=== PATIENT | female | born 1965 | race Caucasian/White ===

== ENCOUNTER 2019-07-27 12:52 | Outpatient (RCR) | payer OTHER, SELFPAY ==
[2019-07-27 12:58] VITALS: BMI 32.3
[2019-07-27 12:59] VITALS: BMI 32.3
== END 2019-10-25 23:59 | disposition home or self-care (01) ==
LOC: ANHDMC 12:52
PROVIDERS: PCP Internal Medicine; Visit Provider Internal Medicine
DX: E11.9 Type 2 diabetes mellitus without complications (principal); Z71.89 Other specified counseling; Z71.3 Dietary counseling and surveillance
CPT/HCPCS: 97802; G0108

== ENCOUNTER 2020-06-12 07:27 | Outpatient (CLI) | payer OTHER, SELFPAY ==
--- NOTE | ~2020-06-12 | MM_ITS ---
EXAMINATION: MM screening [facility] BI w tanner HISTORY: Screening TECHNIQUE: Craniocaudal and mediolateral oblique 3-D tomosynthesis images were obtained and synthetic 2-D images were generated. CAD analysis was submitted and interpreted. COMPARISON: Comparison to multiple prior studies sequentially, with oldest reviewed study dated 02/01. BREAST PARENCHYMAL COMPOSITION: The breasts are heterogeneously dense, which may obscure small masses . FINDINGS: There is no evidence of suspicious mass, calcification, or architectural distortion to sugg est malignancy in either breast. There has been no suspicious interval change. IMPRESSION: 1. No mammographic evidence of malignancy. 2. Recommend routine screening mammography in one year. BI-RADS Category 1: Negative Reviewed, dictated and finalized at location A.
== END 2020-06-12 07:28 | disposition home or self-care (01) ==
LOC: ANHIMG 07:30
PROVIDERS: PCP Internal Medicine; Visit Provider Obstetrics & Gynecology
DX: Z12.31 Encounter for screening mammogram for malignant neoplasm of breast (principal)
CPT/HCPCS: 77063; 77067

== ENCOUNTER 2021-04-16 09:01 | Outpatient (RCR) | payer OTHER, SELFPAY | END 2021-07-04 11:53 | disposition home or self-care (01) | LOC: ANHDMC 09:01 | PROVIDERS: PCP Internal Medicine; Visit Provider Internal Medicine Endocrinology, Diabetes & Metabolism | DX: E11.9 Type 2 diabetes mellitus without complications (principal); Z71.89 Other specified counseling | CPT/HCPCS: G0108 ==

== ENCOUNTER 2021-08-29 12:54 | Outpatient (CLI) | payer OTHER, SELFPAY ==
--- NOTE | ~2021-08-29 | MR_ITS ---
EXAMINATION: MR shoulder LT wo con DATE: 08/29/2021 15:59 INDICATION: Left shoulder pain TECHNIQUE: Magnetic resonance imaging (MRI) of the left shoulder was performed without intravenous co ntrast. Sequences included axial PD-weighted FS FSE, coronal oblique PD-weighted FS FSE, coronal obli que T2-weighted FS FSE, sagittal PD-weighted FS FSE, and sagittal T1-weighted SE. COMPARISON: Left shoulder radiographs dated 02/19/2021 FINDINGS: Coracoacromial arch: The acromion undersurface is curved in morphology (type II) with prominent anterior subacromial spur. The coracoacromial ligament is normal. Moderate acromioclavicular osteoarthritis with moderate-sized inferiorly directed osteophytes at the lateral head of the clavicle. Rotator cuff: Moderate supraspinatus and mild infraspinatus tendinopathy. Partial tear extending for approximately 1 cm AP along the superior facet footplate of the supraspinatus tendon. There is some involvement of the bursal surface as well as portions of the central third of the tendon but without a single well-d efined fluid signal intensity tear defect. The teres minor and subscapularis tendons are normal. No a symmetric rotator cuff muscle atrophy. Biceps tendon, glenoid labrum and glenohumeral cartilage: Long head of the biceps tendon is normal. Focal mild degenerative tearing at the 11:00 position of th e posterior superior glenoid labrum. Glenohumeral cartilage is normal. Fluid: Physiologic amount of fluid in the glenohumeral joint and biceps tendon sheath. No loose osteochondra l bodies. Moderate of fluid in the subacromial/subdeltoid bursa consistent with bursitis. Bones: Normal marrow signal with no edema, fracture or abnormal marrow replacing process. IMPRESSION: 1. Moderate supraspinatus and mild infraspinatus tendinopathy with poorly defined small partial-thick ness tear at the insertion of the distal supraspinatus tendon with some involvement of the bursal cuate face but without a well-defined fluid signal intensity tear defect. 2. Focal mild degenerative tearing at the posterior superior glenoid labrum. 3. Moderate-sized anterior subacromial spur as well as moderate acromial clavicular osteoarthritis wi th moderate-sized inferiorly directed clavicular osteophyte. 4. Subacromial/subdeltoid bursitis. Reviewed, dictated and finalized at location H. E MAKER IMPRESSION: 1. Moderate supraspinatus and mild infraspinatus tendinopathy with poorly defin ed small partial-thickness tear at the insertion of the distal supraspinatus te ndon with some involvement of the bursal surface but without a well-defined flu id signal intensity tear defect. 2. Focal mild degenerative tearing at the posterior superior glenoid labrum. 3. Moderate-sized anterior subacromial spur as well as moderate acromial clavic ular osteoarthritis with moderate-sized inferiorly directed clavicular osteophy te. 4. Subacromial/subdeltoid bursitis.
== END 2021-08-29 15:07 ==
PROVIDERS: PCP Internal Medicine; Visit Provider Orthopaedic Surgery
DX: M75.102 Unspecified rotator cuff tear or rupture of left shoulder, not specified as traumatic (principal); S43.432A Superior glenoid labrum lesion of left shoulder, initial encounter; M75.52 Bursitis of left shoulder; M19.012 Primary osteoarthritis, left shoulder
CPT/HCPCS: 73221

== ENCOUNTER 2021-08-30 07:24 | Outpatient (CLI) | payer OTHER, SELFPAY ==
--- NOTE | ~2021-08-30 | MM_ITS ---
EXAMINATION: MM screening [facility] BI w tanner HISTORY: Screening mammogram TECHNIQUE: Craniocaudal and mediolateral oblique 3-D tomosynthesis images were obtained and synthetic 2-D images were generated. CAD analysis was submitted and interpreted. COMPARISON: 06/12/2020 05/04/2019, 04/16/2018 BREAST PARENCHYMAL COMPOSITION: The breasts are heterogeneously dense, which may obscure small masses . FINDINGS: There is no evidence of suspicious mass, calcification, or architectural distortion to sugg est malignancy in either breast. There has been no suspicious interval change. IMPRESSION: 1. No mammographic evidence of malignancy. 2. Recommend routine screening mammography in one year. BI-RADS Category 1: Negative Reviewed, dictated and finalized at location A. CE MOVER
== END 2021-08-30 07:25 | disposition home or self-care (01) ==
LOC: ANHIMG 07:26
PROVIDERS: PCP Internal Medicine; Visit Provider Obstetrics & Gynecology
DX: Z12.31 Encounter for screening mammogram for malignant neoplasm of breast (principal)
CPT/HCPCS: 77063; 77067

== ENCOUNTER 2021-12-04 12:49 | Outpatient (CLI) | payer OTHER, SELFPAY ==
--- NOTE | 2021-12-04 13:00 | ECG_ITS ---
Measurements Intervals [place] Rate: 82 P: 33 NH: 175 QRS: 22 QRSD: 85 T: 20 QT: 364 QTc: 426 Interpretive Statements SINUS RHYTHM POSSIBLE LEFT ATRIAL ENLARGEMENT [-0.1mV P WAVE IN V1/V2] POOR R-WAVE PROGRESSION ABNORMAL ECG NO PREVIOUS ECG AVAILABLE FOR COMPARISON Electronically Signed On 12-04-2021 17:36:41 CDT by Osvaldo Beard M.D.
[2021-12-04 14:19] LABS: Anion Gap 9 mmol/L (8-16); Blood Urea Nitrogen 17 mg/dL (7-17); Calcium 9.4 mg/dL (8.4-10.2); Carbon Dioxide 27 mmol/L (22-30); Chloride 102 mmol/L (98-107); Estimated Glomerular Filt Rate > 60; Glucose 129 mg/dL (65-110); Potassium 3.9 mmol/L (3.4-5.0); Sodium 138 mmol/L (137-145)
== END 2021-12-04 12:50 | disposition home or self-care (01) ==
LOC: ANHSURGERY 12:52
PROVIDERS: Anesthesiology; PCP Internal Medicine; Visit Provider Orthopaedic Surgery
DX: E11.9 Type 2 diabetes mellitus without complications (principal); I10 Essential (primary) hypertension; Z01.818 Encounter for other preprocedural examination
CPT/HCPCS: 36415; 80048; 93005

== ENCOUNTER 2021-12-07 00:32 | Day surgery (SDC) | payer OTHER, SELFPAY ==
[2021-11-28 14:59] VITALS: BMI 32.1
--- NOTE | 2021-11-28 15:05 | PC.NURSE ---
Report to the Outpatient Waiting Room, entrance under the green pavilion located off [facility], at time _1000_ on date _12-07-2021_. OR Time: _1200_. - You and your visitor will be asked a series of questions to screen for COVID 19 for your protection. - A mask is required within the hospital. Preoperative COVID Testing Requirements: No COVID Test needed if: (proof is required; if not received patient will have Rapid Test prior to entry) - Patient has received COVID Vaccine at least 14 days prior to procedure date or - Patient has positive COVID test result within last 90 days of surgery date. COVID Test needed if above criteria is not met If not COVID vaccinated a COVID test must be conducted within 72 hours of surgery and patient is asked to isolate self from time of testing until procedure. You will go to the [facility] for your COVID testing. The [facility] Testing site is located at the corner of [address] from [facility]. You will only be called if COVID results are positive and your surgeon may reschedule your elective surgery date. Patients may have clear liquids (water, carbonated beverages, clear teas, apple juice) until 3 hours prior to surgery with a maximum of 20 ounces. - No food from midnight until time of surgery - Infants may have breast milk until 4 hours before surgery, infant formula 6 hours prior to surgery. - Children will be allowed to drink immediately following surgery. If applicable, please bring a bottle or sippy cup to assist with drinking. Juice, water, soda, and popsicles are readily available. For infants on formula, please bring formula the day of surgery. Pacifiers are allowed. Take the following medications with a SIP of water the morning of surgery: ____Escitalopram Medications to discontinue per physician Multivitamin Date to take last pqtp [id number] Please no make-up, nail equatorial guinean, hairspray, perfume, deodorant, or body powder the day of surgery. No jewelry (including any body piercings) or valuables the day of surgery, leave them at home. Please take a shower or bath the night before, or the morning of, surgery with an antibacterial soap. Wear comfortable, loose fitting clothing. Children are encouraged to wear pajamas. - Jewelry must be removed prior to entering the operating room. Rings and piercings that are not removed may be cut off. - The hospital will not accept responsibility for valuables. - Please leave all valuables, including medications, at home the day of surgery. If you are going home after surgery, a licensed caterpillar driver must drive you home. - NO public transportation without another adult. - We recommend that an adult stay with you for 24 hours following discharge. - We also recommend that you do not drive, make important decision, drink alcoholic beverages, or take any drugs that were not prescribed by your health care provider for at least 24 hours after your discharge time. For Pediatric surgeries, we recommend two adults accompany the child home (only one inside the building at this time). One visitor will be allowed to accompany the patient into the hospital. Patients visitor will be instructed to remain with patient at all times or leave the building. We will allow the visitor to come back to the postoperative area when patient is ready. Follow any additional instructions given to you from your surgeon. Telephone instructions given to Patient____and asked if any additional questions and then verbalized understanding. Patient advised to call surgeon office or pre surgery nurse liaison [phone] if any additional questions.
[2021-12-07] VITALS (9 sets, daily range): BP systolic 112–129; BP diastolic 71–84; PULSE 77–97; RESP 10–18; TEMP 36.5–36.7; O2SAT 92–100
--- NOTE | 2021-12-07 07:18 | WPDHPUPDATE1 ---
History and Physical Update Update Date/Time: 12/07/21 07:18 History and Physical has been reviewed, including an updated exam of the patient. There are NO changes in the patient's condition. Risks, benefits, and alternatives have been discussed and questions answered. Patient agrees to proceed with procedure.
[2021-12-07] MEDS: LACTATED RINGERS 1,000 ML 30 ML IV CONT ×2 (09:15→13:06)
[2021-12-07] MEDS: ACETAMINOPHEN 500 MG TABLET 1000 MG PO (09:17)
[2021-12-07] MEDS: KETOROLAC 15 MG/ML VIAL (*BKC) IV PUSH (09:17)
[2021-12-07 09:21] LABS: Glucose Point of Care 122 mg/dl (65-105)
--- NOTE | 2021-12-07 10:17 | WPDANESEPPF ---
Anes - Initial Pre Proc Eval Procedure: Operation Date: 12/07/21 10:30 Proposed Procedures p Left Shoulder Arthroscopic Subacromial Decompression, Possible Rotator Cuff Repair - Trell Bedoya MD Date/Time: 12/07/21 10:17 Surgeon: Trell Bedoya MD Pre Op Diagnosis: high grade partial rotator cuff tear left shoulder Patient Data Age: 56 Gender: F Height: 1.63 m Weight: 84.8 kg Last Vital Signs Temp 36.7 C 12/07/21 08:49 Pulse 97 12/07/21 08:49 Resp 16 12/07/21 08:49 BP 121/84 12/07/21 08:49 Pulse Ox 97 12/07/21 08:49 Allergies Allergy/AdvReac Type Severity Reaction Status Date / Time Sulfa (Sulfonamide Allergy Intermediate sulfa eye Verified 12/07/21 08:56 Antibiotics) gtts Home Medications Medication Instructions Recorded Confirmed Type Accu-Chek Softclix Lancets #200 ea NS 08/23/20 12/07/21 Rx escitalopram oxalate 10 mg tablet 10 mg PO DAILY 08/23/20 12/07/21 History multivitamin 1 tablet PO DAILY 08/23/20 12/07/21 History flash glucose sensor #2 ea 01/31/21 12/07/21 Rx flash glucose scanning reader #1 ea 02/26/21 12/07/21 Rx metformin 500 mg tablet,extended 500 mg PO BID 30 Days #60 tablet 06/04/21 12/07/21 Rx release 24 hr atorvastatin 20 mg tablet 20 mg PO DAILY #90 tablet 06/17/21 12/07/21 Rx losartan 50 mg tablet 50 mg PO DAILY #90 tablet 08/23/21 12/07/21 Rx pantoprazole 40 mg tablet,delayed See Rx Instructions .ROUTE 08/23/21 12/07/21 Rx release .COMPLEX #90 tablet Jardiance 25 mg tablet 25 mg PO QAM 90 Days #90 tablet NS 10/04/21 12/07/21 Rx ondansetron 4 mg disintegrating 4 mg PO Q8H PRN #14 tablet 10/15/21 12/07/21 Rx tablet semaglutide 1 mg/dose (4 mg/3 mL) 1 mg SUBCUT WEEKLY 90 Days #9.75 ml 11/12/21 12/07/21 Rx subcutaneous pen injector Laboratory Tests 12/07/21 09:13 POC Capillary Glucose 122 mg/dl H mg/dl (65-105) Patient hx anesthesia problems: none Family hx anesthesia problems: none Results Review: All pre-operative results and documents have been reviewed as part of the pre-operative evaluation. [facility]LY [facility] Past Medical History Medical History Anxiety delivery delivered H/O: HTN (hypertension) History of DVT in adulthood Obesity (BMI 30-39.9) Pure hypercholesterolemia Type 2 diabetes mellitus without complication Surgical History Surgical History H/O right breast biopsy History of cholecystectomy History of endometrial ablation History of repair of rotator cuff History of total right knee replacement (TKR) Family History Family History Father Hypertension Mother Patient's mother is in good health Sibling Patient's sister is in good health Other Afib Breast cancer Cataract and glaucoma syndrome Cerebrovascular accident Colon cancer Diabetes mellitus Family history of alcoholism Family history of mental disorder Hearing loss Heart failure Ovarian ca Social History Social History Smoking status: Never smoker Second hand tobacco smoke exposure: No Alcohol intake: current Drinks per week: 5 Living arrangements: with family Spiritual care concerns: No Anes - Eval Final PreProcedure Day of Procedure 12/07/21 10:17 Patient weight: obese Heart: regular rate and rhythm Lungs: clear to auscultation Airway: Mallampati scale class II Neurological: alert and oriented Last oral intake: >/= 8 hours ASA classification: III Emergent: no Anesthetic plan: proceed Anesthesia type and monitoring: general and standard monitoring Results Review: All pre-operative results and documents have been reviewed as part of the pre-operative evaluation. Informed Consent: The patient's anesthetic plan and its attendant risks and benefits were discussed with the patient/family/PO
--- NOTE | 2021-12-07 10:28 | WPDANESPNB ---
Anes - Peripheral Nerve Block Date/Time: 12/07/21 10:28 I have discussed with the patient/family/POA the placement of a peripheral nerve block for post-operative pain management, including associated risks, benefits, complications, and side effects. Alternative methods of post-operative analgesia were detailed. Questions were solicited and answers provided to the satisfaction of the patient/family/POA. Time-Out: A pre-procedural Time-Out was completed immediately before starting the procedure and confirmed: Patient Identification, Site, Procedure, Patient Position and the Availability of Requisite Equipment. Clinical Indications: Acute post-operative pain management requested by the operative surgeon. Nerve Block Insertion Note Anes-nerve block: interscalene left Patient position: supine Needle: 22 gauge, stimulating, insulated echogenic needle. Needle length: 50 mm Technique: ultrasound Injectate: bupivacaine 0.5% with epi 5 mcg/ml (30 cc no epi) and dexamethasone (mg) (8) Observations: tolerated well Complications: none Procedure start time:: 1021 Procedure end time:: 1026
[2021-12-07] MEDS: ceFAZolin 2 GM/D5W 50 ML 2 GM/50 ML BAG IVPB (10:32)
[2021-12-07 12:58] LABS: Glucose Point of Care 151 mg/dl (65-105)
--- NOTE | 2021-12-07 15:37 | P.OP_ITS ---
Procedure Note - Detailed Date of Procedure 12/07/21 Pre-op Diagnosis high grade partial rotator cuff tear left shoulder Post-op Diagnosis Other (1. Rotator cuff tear, complete 2. Subacromial impingement) Procedure Performed Left shoulder 1. Arthroscopic rotator cuff repair 2. Arthroscopic subacromial decompression Surgeon Trell Bedoya MD Hardware Developer Tana Sharma PA-C Anesthesia General and Regional ( interscalene block) Indications Severe persistent pain despite ongoing conservative treatment. Findings Small full-thickness tear. No retraction. Partial articular component more anteriorly. Significant proliferative bursitis and impingement. No intra- articular pathology. Description of Procedure Preoperative antibiotics were given. An interscalene block was administered in the preoperative area. The patient was bought brought to the operating room. A general anesthetic was administered. The patient was carefully positioned in the beach chair position. The head and neck were carefully positioned. The non operative extremity was also carefully positioned. The shoulder was prepped and draped in the usual sterile fashion. Examination was performed. Standard posterior and anterior arthroscopic portals were established. Inflow achieved with the arthroscopic pump using saline and epinephrine. The glenohumeral joint was carefully inspected. The rotator calf tear was identified and gently debrided. Attention was turned to the subacromial space. A complete bursectomy was performed. The rotator cuff and footprint were lightly debrided. A modest acromioplasty was performed. The tear configuration was carefully assessed. At this point, 2 tunnels were created at the rotator cuff. The ArthroTunneler technique was utilized. Three sutures were passed through each tunnel. All sutures were then passed through the cuff tissue. The sutures were tied arthroscopically. The arthroscopic instruments were removed. The wounds were closed with 3-0 Monocryl subcuticular suture and steri strips. There were no complications. A sling was applied and the patient brought to the recovery room. Physician information services assistant, Tana Sharma PA-C, required for surgery; including patient positioning, draping, arthroscopic camera operation, maintaining instrument position, suture retrieval, wound closure, and dressing and sling pl acement. Estimated Blood Loss -10.0 Pathology None sent Complications No immediate complications Condition Stable Disposition PACU
== END 2021-12-07 15:11 | disposition home or self-care (01) ==
PROVIDERS: PCP Internal Medicine; Visit Provider Orthopaedic Surgery
PROC: (CPT 29805; principal; 2021-12-07 10:30)
DX: M75.112 Incomplete rotator cuff tear or rupture of left shoulder, not specified as traumatic (principal); M75.42 Impingement syndrome of left shoulder; G89.18 Other acute postprocedural pain; F41.9 Anxiety disorder, unspecified; I10 Essential (primary) hypertension; Z86.718 Personal history of other venous thrombosis and embolism; E78.00 Pure hypercholesterolemia, unspecified; E11.9 Type 2 diabetes mellitus without complications; Z79.84 Long term (current) use of oral hypoglycemic drugs; Z90.49 Acquired absence of other specified parts of digestive tract; E66.9 Obesity, unspecified; Z68.32 Body mass index [BMI] 32.0-32.9, adult; M25.512 Pain in left shoulder; M75.52 Bursitis of left shoulder
CPT/HCPCS: 29827; 29826; 64415; 82948; A4565; A9270; J0330; J0690; J1100; J1885; J2250; J2405; J2704; J3010; J7120

== ENCOUNTER 2022-02-13 15:30 | Outpatient (RCR) | payer OTHER, SELFPAY ==
[2022-01-07 13:35] VITALS: BP_SYST 145
--- NOTE | 2022-01-07 14:29 | PTOPEVAL ---
PHYSICAL THERAPY EVALUATION AND PLAN OF CARE 01-07-22 Thank you for referring Gayla Subramanian to [facility], s/p L shoulder surgery. She is scheduled to be seen for therapy? 1-2 x/week for 6 weeks. Will begin with 1x/wk and progress to 2x/wk if indicated with treatments. Progression of activity as tolerated: shoulder AAROM, to AROM and to strengthening as tolerated. Please review, sign, date and return this plan of care ABNER. I agree with and certify that the following plan of care is medically necessary. Referring Physician Date Attending Provider: Trell Bedoya MD Past Medical History Hx Hypertension Yes: meds Musculoskeletal History Hx Joint Replacement Yes: Right TKA Hx Orthopedic Surgery Yes: Right rotator cuff repair Endocrine History Hx Diabetes Yes: meds Evaluation Information Diagnosis s/p L rotator cuff repair and subacrominal decompression Onset 12-07-21 Subjective Information since surgery, using sling; Query Text:As Reported By Patient/ doing HEP from dr: myron, Family table slides; elbow flexion/ ext and industrial order clerk/ball squeezes; is not sleeping with the sling , but using during day; 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 Prior Level of Function Occupation office practice office associate-office work Hand Dominance Left Additional Prior Level of Function wearing sling during day and Comments not doing any lifting Pain Assessment Pain Scale Used Numeric (1 - 10) Self Report Pain Assessment Left Shoulder(s) Reported Pain Level 2 Pain Description Aching,Dull,Soreness,Tightness Pain Frequency Acute,Continuous Other Pain Description stiff; dull ache in posterior shoulder Lowest Pain Intensity 2 Greatest Pain Intensity 4 Pain Aggravating Factors Exercise/Activity Pain Behaviors Anxious,Guarding Pain Score 2: Self Report Additional Pain Score Comments sleeping OK, in the bed and do not wear sling; pillow under arm; Interventions Used Interventions Used By Clinicians Education,Exercise Pain Relief Interventions Used By Ice,Inactivity/Rest,Position Patient
[2022-02-13 15:30] VITALS: BP_SYST 145
--- NOTE | 2022-02-13 16:07 | PTOPEVAL ---
PHYSICAL THERAPY REEVALUATION 02-13-22 Refer to the clinical summary below, for her status today, compared to the initial evaluation. She has been educated on a HEP. She has improved with her strength and ROM, but lacks strength at the end ranges of flexion and abduction motions. Gayla has an appointment next week and wants to discuss her therapy with you and decide if she needs more therapy or not. Thank you for referring Gayla Subramanian to [facility].? Please review, sign, date and return this reevaluation report ABNER. I agree with and certify that the following plan of care is medically necessary. Referring Physician Date Attending Provider: Trell Bedoya MD Subjective Information Gayla reports: shoulder is not Query Text:As Reported By Patient/ as tight, the deep pressure Family massage and stretching helped pain and tightness; feels like her arm is not yet strong enough; wants to talk with the Dr about her therapy and check her insurance coverage before she decides if she wants to continue therapy or not; Pain Assessment Pain Scale Pain Scale Used Numeric (1 - 10) Self Report Pain Assessment Left Shoulder(s) Reported Pain Level 0 Pain Description Aching Pain Frequency Chronic,Intermittent Other Pain Description stiff and tight Lowest Pain Intensity 0 Greatest Pain Intensity 6 Pain Aggravating Factors Exercise/Activity Other Pain Aggravating Factors cleaning house, end of day after using arm; stretching at end ranges of sh Additional Pain Score Comments is not using heat/ice- reinstruct to use PRN; is sleeping OK; leukotape over area of lateral shoulder spasms- educated on name and how to tape Interventions Used Interventions Used By Clinicians Education,Exercise,Taping Pain Relief Interventions Used By Inactivity/Rest,Medication Patient Other Alleviating Interventions ibuprofen; ROM Left shoulder Shoulder Flexion - Active 125 Shoulder Flexion - Passive 145 Shoulder Abduction - Active 120 Shoulder Abduction - Passive 145 Shoulder Medial Rotation - Active palm to above waist Query Text:Reach Behind the Back Shoulder Lateral Rotation - Active palm to back of head Query Text:Reach Behind the Head Scapular/Shoulder Range of Motion reports pain at end ranges of Comments all 4 motions; active range in standing,
--- NOTE | 2022-03-06 14:01 | PCPTNOTE ---
PHYSICAL THERAPY DISCHARGE REPORT 6-29-22 Attending Provider: Trell Bedoya MD Patient:Gayla Subramanian Date of :1965 Gayla has not returned for any further treatments since the reevaluation on 02/13/2022, therefore she will be discharged at this time. Thank you for referring Ms. Subramanian to [facility]. Please review, sign, date and return this discharge summary ABNER. I have been updated about the patient's current status and I agree with discharge from the above service at this time. Referring Physician Date
== END 2022-03-06 15:27 | disposition home or self-care (01) ==
LOC: ANHPT 15:30
PROVIDERS: PCP Internal Medicine; Visit Provider Orthopaedic Surgery
DX: Z48.89 Encounter for other specified surgical aftercare (principal)
CPT/HCPCS: 97014; 97110; 97140; 97161; 97530; G0283

== ENCOUNTER 2022-09-03 07:13 | Outpatient (CLI) | payer OTHER, SELFPAY ==
--- NOTE | ~2022-09-03 | MM_ITS ---
EXAMINATION: MM screening pamela BI w tanner HISTORY: Screening mammogram TECHNIQUE: Craniocaudal and mediolateral oblique 3-D tomosynthesis images were obtained and synthetic 2-D images were generated. Bilateral rotated lateral CC views. CAD analysis was submitted and interp reted. COMPARISON: 08/30/2021, 06/12/2020, 05/04/2019 bilateral screening mammogram examinations BREAST PARENCHYMAL COMPOSITION: The breasts are heterogeneously dense, which may obscure small masses . FINDINGS: Numerous benign microcalcifications are noted. There is no evidence of suspicious mass, estephania cification, or architectural distortion to suggest malignancy in either breast. There has been no maxwell picious interval change. IMPRESSION: 1. No mammographic evidence of malignancy. 2. Recommend routine screening mammography in one year. BI-RADS Category 2: Benign finding(s). Reviewed, dictated and finalized at location A. OM CAR BUILDER
== END 2022-09-03 07:14 | disposition home or self-care (01) ==
LOC: ANHIMG 07:14
PROVIDERS: PCP Internal Medicine; Visit Provider Obstetrics & Gynecology
DX: Z12.31 Encounter for screening mammogram for malignant neoplasm of breast (principal)
CPT/HCPCS: 77063; 77067

== ENCOUNTER 2023-02-07 09:24 | Outpatient (CLI) | payer OTHER, SELFPAY ==
--- NOTE | ~2023-02-07 | NM_ITS ---
EXAMINATION: NM salima stress w perfusion DATE: 02/07/2023 11:41 INDICATION: Chest pain, unspecified. TECHNIQUE: Rest images were obtained following intravenous administration of 9.7 mCi Tc99m tetrofosmi n (Myoview). The patient was infused intravenously with Lexiscan (regadenoson). Then, 31 mCi Tc99m te trofosmin (Myoview) was administered intravenously, and stress images were obtained. Data was reconst ructed into short axis and horizontal and vertical long axis SPECT images. Gated SPECT images were al so obtained. COMPARISON: None. FINDINGS: There is no definite reversible or fixed perfusion abnormality to suggest ischemia or infar ction. There is no segmental wall motion abnormality. Left ventricular ejection fraction measures > 70%. IMPRESSION: 1. No definite ischemia or infarct. 2. Normal left ventricular ejection fraction measuring >70%. Reviewed, dictated and finalized at location A.
--- NOTE | 2023-02-07 10:26 | EST_ITS ---
Patient Info Name: Gayla Subramanian Age: 57 years : 1965 Gender: Female Ht: 64 in Wt: 175 lbs BSA: 1.92 m2 HR: 68 bpm BP: 116 / 83 mmHg Heart Rhythm: Sinus Rhythm Exam Date: 02/07/2023 10:36 AM Exam Location: [facility] Stress Patient Status: Outpatient Admit Date: 02/07/2023 Staff Ordering Physician: Eric Angela PA-C Attending Provider: Eric Angela PA-C Exercise Technologist: Loreta Butts CT Exercise Physician: Abran Mir DO Exam Type: CA stress salima w NM Study Info Indications R07.89 - Other chest pain A regadenoson stress test was performed. Summary 1. 1. Negative lexiscan stress test for ischemic ST changes by ECG criteria. 2. 2. Stable hemodynamics throughout the test. 3. 3. Nuclear scan to follow and will be reported separately. Please correlate with it. 4. 4. Patient informed of the above results. Protocol: Lexiscan Stress ECG Details Stage: REST Duration (min): 1 min : 10 sec HR (bpm): 65 SBP (mmHg): 116 DBP (mmHg): 83 Stage: REST Duration (min): 5 min : 59 sec HR (bpm): 71 SBP (mmHg): 116 DBP (mmHg): 83 Stage: STAGE 1 Duration (min): 0 min : 59 sec HR (bpm): 106 SBP (mmHg): 125 DBP (mmHg): 74 Stage: RECOVERY Duration (min): 1 min : 0 sec HR (bpm): 103 SBP (mmHg): 125 DBP (mmHg): 74 Stage: RECOVERY Duration (min): 2 min : 0 sec HR (bpm): 95 SBP (mmHg): 125 DBP (mmHg): 74 Stage: RECOVERY Duration (min): 3 min : 0 sec HR (bpm): 97 SBP (mmHg): 130 DBP (mmHg): 76 Stage: RECOVERY Duration (min): 3 min : 6 sec HR (bpm): 92 SBP (mmHg): 130 DBP (mmHg): 76 Rest HR: 71 bpm Peak HR: 109 bpm Rest Sys BP: 116 mmHg Peak Sys BP: 130 mmHg Max Pred HR: 164 bpm % Max Pred HR: 66 % Target HR: 139 bpm Max RPP: 14,170 bpm*mmHg Termination Reason: Completed protocol Cardiac Symptoms: Shortness of breath Total Time: 1 min : 0 sec Rest Gonsalez BP: 83 mmHg Peak Gonsalez BP: 76 mmHg Total Dose: 0.4 mg Resting ECG Sinus rhythm. Stress ECG No ST changes. Arrhythmias None. Report Signatures
== END 2023-02-07 09:25 | disposition home or self-care (01) ==
PROVIDERS: PCP Internal Medicine; Visit Provider Physician Assistant
DX: R07.9 Chest pain, unspecified (principal)
CPT/HCPCS: 78452; 93017; A9502; J2785

== ENCOUNTER 2023-10-23 07:27 | Outpatient (CLI) | payer OTHER, SELFPAY ==
--- NOTE | ~2023-10-23 | MM_ITS ---
EXAMINATION: MM screening pamela BI w tanner HISTORY: Screening mammogram, family history of breast cancer in her sister. TECHNIQUE: Craniocaudal and mediolateral oblique 3-D tomosynthesis images were obtained and synthetic 2-D images were generated. CAD analysis was submitted and interpreted. COMPARISON: 09/03/2022, 08/30/2021, 06/27/2020 BREAST PARENCHYMAL COMPOSITION:Dense: The breasts are heterogeneously dense, which may obscure small masses. FINDINGS: Stable circumscribed mass at the lower, inner left subareolar region. No suspicious mass, c alcification, or architectural distortion are identified in either breast to suggest malignancy. Ther e has been no suspicious interval change. IMPRESSION: No mammographic evidence of malignancy. Recommend routine screening mammography in one year. BI-RADS Category 2: Benign finding(s). Reviewed, dictated and finalized at location . GARNISHER
== END 2023-10-23 07:28 | disposition home or self-care (01) ==
PROVIDERS: PCP Internal Medicine; Visit Provider Obstetrics & Gynecology
DX: Z12.31 Encounter for screening mammogram for malignant neoplasm of breast (principal)
CPT/HCPCS: 77063; 77067

== ENCOUNTER 2024-07-14 07:01 | Outpatient (CLI) | payer OTHER, SELFPAY ==
--- NOTE | ~2024-07-14 | XR_ITS ---
XR sacroiliac joints min 3V Ordering provider: Cait Nick, FOREIGN LEGAL CONSULTANT History: . MULTIPLE JOINT PAIN FOR A FEW MONTHS, NKI . Comparison: None. FINDINGS: BONES: No acute fracture or dislocation. JOINTS: The bilateral sacroiliac joint spaces appear well maintained. No bony fusion of the sacroilia c joints or bony erosions. SOFT TISSUES: Unremarkable. IMPRESSION: NO ACUTE OSSEOUS ABNORMALITY. NORMAL SACROILIAC JOINTS. Reviewed, dictated and finalized at location A. OLL MANAGER
--- NOTE | ~2024-07-14 | XR_ITS ---
Right foot Technique: AP and lateral views were obtained. Clinical History: Pain Findings: No acute fracture or dislocation is seen. Osseous alignment is anatomic. There are mild deg enerative changes of the midfoot. Plantar calcaneal spur noted. Soft tissues are unremarkable. Impression: Mild degenerative changes, as above. Reviewed, dictated and finalized at location . KEEPER Impression: Mild degenerative changes, as above.
--- NOTE | ~2024-07-14 | XR_ITS ---
Left ankle Technique: AP and lateral views were obtained. Clinical History: Pain Findings: No acute fracture or dislocation is seen. Osseous alignment is anatomic. Ankle mortise and other visualized joint spaces are preserved. Soft tissues are otherwise unremarkable. Impression: Unremarkable left ankle. Reviewed, dictated and finalized at location . [employer] Impression: Unremarkable left ankle.
--- NOTE | ~2024-07-14 | XR_ITS ---
Right wrist Technique: PA and lateral views were obtained. Clinical History: Pain Findings: No acute fracture or dislocation is seen. Osseous alignment is anatomic. There are mild deg enerative change of the triscaphe joint and first CMC joint. Soft tissues are unremarkable. Impression: Mild degenerative changes, as above. Reviewed, dictated and finalized at location . TER CAPTAIN Impression: Mild degenerative changes, as above.
--- NOTE | ~2024-07-14 | XR_ITS ---
Left Hand Technique: PA and lateral views were obtained. Clinical History: Pain Findings: No acute fracture or dislocation is seen. Osseous alignment is anatomic. There is mild dege nerative change at the first CMC joint. Soft tissues are unremarkable. Impression: Mild degenerative change of the first CMC joint. Reviewed, dictated and finalized at location . LEMAN Impression: Mild degenerative change of the first CMC joint.
--- NOTE | ~2024-07-14 | XR_ITS ---
Right Hand Technique: PA and lateral views were obtained. Clinical History: Pain Findings: No acute fracture or dislocation is seen. Osseous alignment is anatomic. There is mild dege nerative change of the first CMC joint. Soft tissues are unremarkable. Impression: Mild degenerative change of the first CMC joint. Reviewed, dictated and finalized at location . O NARRATOR Impression: Mild degenerative change of the first CMC joint.
--- NOTE | ~2024-07-14 | XR_ITS ---
Left wrist Technique: PA and lateral views were obtained. Clinical History: Pain Findings: No acute fracture or dislocation is seen. Osseous alignment is anatomic. There are mild deg enerative changes of the first CMC joint and triscaphe joint. Soft tissues are unremarkable. Impression: Mild degenerative changes, as above. Reviewed, dictated and finalized at location . SEALING TECHNICIAN Impression: Mild degenerative changes, as above.
--- NOTE | ~2024-07-14 | XR_ITS ---
Right ankle Technique: AP and lateral views were obtained. Clinical History: Pain Findings: No acute fracture or dislocation is seen. Probable chronic fracture fragment at the tip of the medial malleolus. Osseous alignment is anatomic. Ankle mortise and other visualized joint spaces are preserved. Soft tissues are otherwise unremarkable. Impression: No acute abnormality. Probable chronic fracture fragment at the tip of the medial malleolus. Reviewed, dictated and finalized at location . ANALYST Impression: No acute abnormality. Probable chronic fracture fragment at the tip of the medi al malleolus.
--- NOTE | ~2024-07-14 | XR_ITS ---
Left foot Technique: AP and lateral views were obtained. Clinical History: Pain Findings: No acute fracture or dislocation is seen. Osseous alignment is anatomic. There are mild deg enerative changes of the midfoot. Plantar calcaneal spur present. Soft tissues are unremarkable. Impression: Mild degenerative changes, as above. Reviewed, dictated and finalized at location . TARY LAWYER Impression: Mild degenerative changes, as above.
== END 2024-07-14 07:02 | disposition home or self-care (01) ==
PROVIDERS: PCP Nurse Practitioner Family; Visit Provider Nurse Practitioner
DX: R53.81 Other malaise (principal); M19.031 Primary osteoarthritis, right wrist; M19.032 Primary osteoarthritis, left wrist; M19.041 Primary osteoarthritis, right hand; M19.042 Primary osteoarthritis, left hand; M19.071 Primary osteoarthritis, right ankle and foot; M19.072 Primary osteoarthritis, left ankle and foot
CPT/HCPCS: 72202; 73100; 73120; 73600; 73620

== ENCOUNTER 2024-08-20 10:55 | Outpatient (CLI) | payer OTHER, SELFPAY ==
--- NOTE | ~2024-08-20 | MR_ITS ---
EXAMINATION: MR wrist LT wo/w con DATE: 08/20/2024 12:12 INDICATION: Left wrist pain. RA factor positive. TECHNIQUE: Magnetic resonance imaging (MRI) of the wrist was performed without and with 15 mL MultiHa nce intravenous contrast. COMPARISON: Left wrist radiographs 07/14/2024 FINDINGS: Intrinsic ligaments: Scapholunate ligament is normal. Lunotriquetral ligament is normal. Triangular fibrocartilage complex (TFCC): The triangular fibrocartilage is normal. Extensor wrist: The extensor tendons are normal. Flexor wrist: The flexor tendons are normal. Median nerve is normal. Guyon's canal: Ulnar nerve is normal. Bones/other: Alignment is normal. No fracture. There is mild osteoarthritis of triscaphe joint and moderate osteoa rthritis of first carpometacarpal joint with synovitis. There is enhancing synovitis at radioscaphoid joint. IMPRESSION: 1. Polyarticular osteoarthritis. 2. Synovitis at radioscaphoid joint. Reviewed, dictated and finalized at location A. RIAL STRESS TESTER
== END 2024-08-20 10:56 | disposition home or self-care (01) ==
PROVIDERS: PCP Nurse Practitioner Family; Visit Provider Nurse Practitioner
DX: M25.432 Effusion, left wrist (principal); R76.8 Other specified abnormal immunological findings in serum; M19.032 Primary osteoarthritis, left wrist
CPT/HCPCS: 73223; A9577

== ENCOUNTER 2024-10-25 08:29 | Outpatient (CLI) | payer OTHER, SELFPAY ==
--- NOTE | ~2024-10-25 | MM_ITS ---
EXAMINATION: MM screening pamela BI w tanner HISTORY: Screening TECHNIQUE: Craniocaudal and mediolateral oblique 3-D tomosynthesis images were obtained and synthetic 2-D images were generated. CAD analysis was submitted and interpreted. COMPARISON: Comparison to multiple prior studies sequentially, with oldest reviewed study dated 05/2018. BREAST PARENCHYMAL COMPOSITION: Dense: The breasts are heterogeneously dense, which may obscure small masses FINDINGS: There is no evidence of suspicious mass, calcification, or architectural distortion to sugg est malignancy in either breast. There has been no suspicious interval change. IMPRESSION: 1. No mammographic evidence of malignancy. 2. Recommend routine screening mammography in one year. BI-RADS Category 1: Negative Reviewed, dictated and finalized at location [] CIATE CHEMIST
--- OUTSIDE RECORDS SUMMARY | 2024-10-25 11:25 | XMS_ITS | Clinical Summary ---
Author Organization [facility] Address [address] [place] [address] Care Team Providers Care Chemical Pumper Name Role Phone Kenyon Padilla MD Primary Care Provider [phone] Allergies Active Allergy Reactions Criticality Noted Date Comments Sulfa Antibiotics Hives Low 09/04/2018 Eyes swelled from the eye drops Medications multivitamin tabletIndication s:supplement Take 1 tablet by mouth daily. Active aspirin EC 81 MG EC tabletIndication s:Anticoagulant Therapy Take 162 mg by mouth 2 (two) times a day. Active losartan 50 MG tabletIndication s:Hypertension Take 50 mg by mouth daily. Active ranitidine 150 MG tabletIndication s:Gastroesophage al Reflux Disease Take 150 mg by mouth 2 (two) times daily. Active escitalopram 10 MG tabletIndication s:Anxiety Take 10 mg by mouth daily. Active celecoxib 200 MG capsuleIndicatio ns:anti-inflamma tory Take 200 mg by mouth daily. Active hydrocodone-acet aminophen 5-325 MG tablet Take 1 tablet by mouth every 4 (four) hours as needed. 40 tablet 09/30/2018 Active Active Problems Problem Noted Date Diagnosed Date Left shoulder pain 03/21/2022 Incomplete tear of left rotator cuff 03/02/2021 Family History Medical History Relation Comments Heart Disease Father Hypertension Father Heart Disease Mother Relation Status Comments Father Alive Mother Alive Social History Tobacco Use Types Packs/Day Years Used Date Smoking Tobacco: Former Smokeless Tobacco: Never Comments:quit smoking 30 yea rs ago Alcohol Use Standard Drinks/Week Comments Yes 0 (1 standard drink = 0.6 oz pur e alcohol) socially Comments Unknown Sex and Gender Information Value Date Recorded Sex Assigned at Not on file Legal Sex Female 8:26 PM CDT Gender Identity Not on file Sexual Orientation Not on file Last Filed Vital Signs Vital Sign Reading Time Taken Comments Blood Pressure 140/81 09/30/2018 8:02 AM FOOD ANALYST Pulse 86 09/30/2018 8:02 AM FOOD ANALYST Temperature 37.1 C (98.8 F) 09/30/2018 8:02 AM FOOD ANALYST Respiratory Rate 18 09/30/2018 8:02 AM FOOD ANALYST Oxygen Saturation 95% 09/30/2018 8:02 AM FOOD ANALYST Inhaled Oxygen Concentration - - Weight 88 kg (194 lb) 09/04/2018 2:46 PM FOOD ANALYST Height 162.6 cm (5' 4 ) 09/04/2018 2:46 PM FOOD ANALYST Body Mass Index 33.3 09/04/2018 2:46 PM FOOD ANALYST Plan of Treatment Health Maintenance Due Date Last Done Comments Cervical Cancer Screening Pa p Smear (Age 30 to 64) Every 3 Years 1965 Colorectal Cancer Screening Colonoscopy (10 Years) 1965 Annual Physical 1969 Hepatitis C 1984 DTaP, Tdap and Td Vaccines ( 1 - Tdap) 1985 Hepatitis B Vaccines (1 of 3 - 19+ 3-dose series) 1985 Cervical Cancer Screening Pa p with HPV Testing (Age 30 to 64) Every 5 Years 1996 Cervical Cancer Screening wi th HPV 1996 Mammogram Screening 2006 Zoster Vaccines (1 of 2) 2016 COVID-19 Vaccine (2023-2 5 season) 2024 09/19/2020, 08/29/2020 Influenza Adult (#1) 2024 Meningococcal B Vaccine Aged Out No l onger eligible based on patient's age to complete this topic Meningococcal Vaccine Aged Out No peyman neil eligible based on patient's age to complete this topic Pneumococcal Vaccine: Pediatrics (0 to 5 Years) and At-Risk Patients (6 to 64 Years) Aged Out No longer eligible b ased on patient's age to complete this topic RSV Immunizations Under 20 Months Aged Out No longer eligible b ased on patient's age to complete this topic Medical Devices Implanted Type Area Centrifuge Operator Device Identifier Shelf Expiration Date Model / Serial / Lot Cement Bone 27/06 Fast Set Depuy - [id number] Implanted:Qty: 1 on 09/29/2018 by Edwin Scott MD at [facility] Right: Knee [employer] 03/07/2021 [id number] / / [id number] Cement Bone 27/06 Fast Set Depuy - [id number] Implanted:Qty: 1 on 09/29/2018 by Edwin Scott MD at [facility] Right: Knee [employer] 02/05/2021 [id number] / / [id number] Persona The Personalized Knee System Femur Cemented Cruciate Retaining Cr Narrow Right Size 7 Implanted:Qty: 1 on 09/29/2018 by Edwin Scott MD at [facility] Right: Knee [employer] 08/07/2027 [id number] / / [id number] Persona The Personalized Knee System Natural Tibia Cemented 5 Degree Stemmed Right Size E Implanted:Qty: 1 on 09/29/2018 by Edwin Scott MD at [facility] Right: Knee [employer] 06/07/2028 [id number] / / [id number] Persona The Personalized Knee System Vivacit E Highly Crosslinked Polyethylene All Poly Patella Cemented 35 Mm Diameter 9.0 Mm Thickness Implanted:Qty: 1 on 09/29/2018 by Edwin Scott MD at [facility] Right: Knee [employer] 08/07/2023 [id number] / / [id number] Persona The Personlaized Knee System Vivacit E Highly Crosslinked Polyethylen Articular Surface Medial Congruent Nm Right 11 Mm Height Implanted:Qty: 1 on 09/29/2018 by Edwin Scott MD at [facility] Right: Knee [employer] 02/05/2023 [id number] / / [id number] [facility] Advance Directives * Full Code (Latest Code Status on File) Date Activated Date Inactivated Comments 09/29/2018 1:03 PM 09/30/2018 12:23 PM Care Teams Chemical Pumper Relationship Specialty Start Date End Date Kenyon Padilla MD [address] [place] [address] PCP - General INTERNAL MEDICINE 09/28/18
--- OUTSIDE RECORDS SUMMARY | 2024-10-25 11:25 | XMS_ITS ---
Author Organization Unknown Medications Medication Instructions Effective Dates (start - stop) Status ondansetron 4 MG Disintegrat ing Oral Tablet - Completed escitalopram 10 MG Oral Tablet 2023-10-10 T00:00:00Z - Completed atorvastatin 20 MG Oral Tablet 2023-06-01 T00:00:00Z - Completed losartan potassium 50 MG Ora l Tablet - Completed pantoprazole 40 MG Delayed R elease Oral Tablet - Completed - - Compl eted celecoxib 200 MG Oral Capsule 2024-01-02 00:00:00Z - Completed empagliflozin 25 MG Oral Tab let [Jardiance] - Completed escitalopram 10 MG Oral Tablet 2023-09-05 T00:00:00Z - Completed - - Compl eted pantoprazole 40 MG Delayed R elease Oral Tablet - Completed escitalopram 10 MG Oral Tablet 2023-06-11 T00:00:00Z - Completed atorvastatin 20 MG Oral Tablet 2023-09-05 T00:00:00Z - Completed - - Compl eted empagliflozin 25 MG Oral Tab let [Jardiance] - Completed pantoprazole 40 MG Delayed R elease Oral Tablet - Completed escitalopram 10 MG Oral Tablet 2024-01-05 T00:00:00Z - Completed empagliflozin 25 MG Oral Tab let [Jardiance] - Completed ondansetron 4 MG Disintegrat ing Oral Tablet - Completed pantoprazole 40 MG Delayed R elease Oral Tablet - Completed atorvastatin 20 MG Oral Tablet 2023-12-11 T00:00:00Z - Completed losartan potassium 50 MG Ora l Tablet - Completed pantoprazole 40 MG Delayed R elease Oral Tablet - Completed - - Compl eted losartan potassium 50 MG Ora l Tablet - Completed - - Compl eted Patient Care team information Name Category Status Period Participants - - Proposed period not known -
== END 2024-10-25 08:30 | disposition home or self-care (01) ==
LOC: ANHIMG 08:32
PROVIDERS: PCP Nurse Practitioner Family; Visit Provider Obstetrics & Gynecology
DX: Z12.31 Encounter for screening mammogram for malignant neoplasm of breast (principal)
CPT/HCPCS: 77063; 77067

== ENCOUNTER 2024-10-31 11:20 | Emergency (ER) | payer OTHER, SELFPAY ==
--- OUTSIDE RECORDS SUMMARY | 2024-10-31 11:26 | XMS_ITS | Clinical Summary ---
Author Organization [facility] Address [address] [place] [id number] Care Team Providers Care Distribution Manager Name Role Phone Kenyon Padilla MD Primary Care Provider [phone] Allergies Active Allergy Reactions Criticality Noted Date [...] Comments Blood Pressure 140/81 09/30/2018 8:02 AM LEAK OPERATOR [employer] Pulse 86 09/30/2018 8:02 AM LEAK OPERATOR [employer] Temperature 37.1 C (98.8 F) 09/30/2018 8:02 AM LEAK OPERATOR [employer] Respiratory Rate 18 09/30/2018 8:02 AM LEAK OPERATOR [employer] Oxygen Saturation 95% 09/30/2018 8:02 AM LEAK OPERATOR [employer] Inhaled Oxygen Concentration - - Weight 88 kg (194 lb) 09/04/2018 2:46 PM LEAK OPERATOR [employer] Height 162.6 cm (5' 4 ) 09/04/2018 2:46 PM LEAK OPERATOR [employer] Body Mass Index 33.3 09/04/2018 2:46 PM LEAK OPERATOR [employer] Plan of Treatment Health Maintenance Due Date [...] this topic Medical Devices Implanted Type Area Water Safety Instructor Device Identifier Shelf Expiration Date Model / Serial / Lot Cement Bone 27/06 Fast Set Depuy - [id number] Implanted:Qty: 1 on 09/29/2018 by Edwin Scott MD at [facility] Right: Knee [employer] 03/07/2021 [id number] / / [id number] Cement Bone 27/06 Fast Set Depuy - [id number] Implanted:Qty: 1 on 09/29/2018 by Edwin Scott MD at [facility] Right: Knee [employer] 02/05/2021 [id number] / / [id number] Persona The Personalized Knee System Femur Cemented Cruciate Retaining Cr Narrow Right Size 7 Implanted:Qty: 1 on 09/29/2018 by Edwin Scott MD at [facility] Right: Knee [employer] 08/07/2027 [id number] / / [id number] Persona The Personalized Knee System Natural Tibia Cemented 5 Degree Stemmed Right Size E Implanted:Qty: 1 on 09/29/2018 by Edwin Scott MD at [facility] Right: Knee [employer] 06/07/2028 [id number] / / [id number] Persona The Personalized Knee System Vivacit E Highly Crosslinked Polyethylene All Poly Patella Cemented 35 Mm Diameter 9.0 Mm Thickness Implanted:Qty: 1 on 09/29/2018 by Edwin Scott MD at [facility] Right: Knee [employer] 08/07/2023 [id number] / / [id number] Persona The Personlaized Knee System Vivacit E Highly Crosslinked Polyethylen Articular Surface Medial Congruent Nm Right 11 Mm Height Implanted:Qty: 1 on 09/29/2018 by Edwin Scott MD at [facility] Right: Knee [employer] 02/05/2023 [id number] / / [id number] [facility] Advance Directives * Full Code (Latest Code Status on File) Date Activated Date Inactivated Comments 09/29/2018 1:03 PM 09/30/2018 12:23 PM Care Teams Distribution Manager Relationship Specialty Start Date End Date Kenyon Padilla MD [address] [place] [address] PCP - General INTERNAL MEDICINE 09/28/18
[2024-10-31 12:06] VITALS: BP 132/81; PULSE 96; RESP 16; TEMP 37.3; O2SAT 97
--- NOTE | 2024-10-31 12:34 | ED_ITS ---
HPI - URI/Sore Throat General Chief Complaint: Upper Respiratory Infection Stated Complaint: chest pain,back pain/flu symptoms Source: patient and RN notes reviewed Mode of arrival: ambulatory Limitations: no limitations History of Present Illness HPI Narrative: 59-year-old female with DM presented for complaint of headache, body aches, sinus pressure/congestion, cough, fever/chills. Onset 3 days. States the day after symptom onset she tested positive for influenza using home past. She was to confirm the diagnosis. She has been using homeopathic Crystals and elderberry for symptoms. Denies sob, wheezing, n/v/d. MD elicited complaint: cough Related Data Home Medications ?Medication ?Instructions ?Recorded ?Confirmed ?Last Taken ?Type multivitamin 1 tablet PO DAILY 08/23/20 10/08/24 Unknown History tirzepatide 5 mg/0.5 mL 5 mg subcut WEEKLY 10/08/24 10/08/24 Unknown History subcutaneous pen injector (Mounjaro) Allergies Allergy/AdvReac Type Severity Reaction Status Date / Time Sulfa (Sulfonamide Allergy Intermediate sulfa eye Verified 10/31/24 12:12 Antibiotics) gtts Review of Systems Review of Systems: [facility] Past Medical History Medical History Adhesive capsulitis of left shoulder Polycythemia Obesity (BMI 30.0-34.9) Cervical radiculopathy Partial tear of left rotator cuff GERD (gastroesophageal reflux disease) Anxiety Obesity (BMI 30-39.9) History of DVT in adulthood Pure hypercholesterolemia Type 2 diabetes mellitus without complication Surgical History Surgical History History of shoulder surgery 12/07/21, left rotator cuff Previous section History of repair of left rotator cuff (~12/07/21) w/Subacromial Decompression History of repair of rotator cuff History of total right knee replacement (TKR) History of endometrial ablation History of cholecystectomy H/O right breast biopsy Family History Family History Father Hypertension Heart disease Acute myocardial infarction Mother Depression Hypertension Sibling Cancer Grandparent Cancer Other Afib Breast cancer Cataract and glaucoma syndrome Cerebrovascular accident Colon cancer Diabetes mellitus Family history of alcoholism Family history of mental disorder Hearing loss Heart failure Ovarian ca Social History Social History Social History: 10/01/24 patient declined SDOH Smoking status: Never smoker Second hand tobacco smoke exposure: No Alcohol intake: current Drinks per week: 5 Alcohol use details: socially Substance use: never Lack of Transportation: No Lack of Food: Never True Current Housing: I Have Housing Concerned About Future Housing: No Difficulty Paying Gas/Electric Bills: No Difficulty Paying for Meds: No Currently Unemployed: No Education: Associate Degree Difficulty w/ Childcare or Family Care: No Living arrangements: with family Spiritual care concerns: No Exam Narrative: GENERAL: well-appearing EYES: PERRLA, conjunctivae clear ENT: Mucous membranes moist. TM pearly lynch with dull light reflex bilaterally; no tragal tenderness. Oropharynx not erythematous without lesions or exudate, no drooling, no hoarseness, no trismus, uvula midline. No tripod positioning, muffled voice, soft palate or pharyngeal wall bulging CHEST: Clear to auscultation, breath sounds equal. HEART: Regular rate and rhythm. SKIN: Warm, dry, no rash. NEURO: Alert and oriented x3. PSYCH: Normal mood and affect Course Course Emergency Course: Patient is aware of diagnosis, understands and agrees to treatment plan. Anticipatory guidance given. Patient agrees to follow-up as directed and is aw are of reasons to seek care at the emergency department. Portions of this record may have been created with voice recognition software Level of Care: Express Care Visit Vital Signs Vital signs: Vital Signs Temperature 99.2 F 10/31/24 12:06 Pulse Rate 96 10/31/24 12:06 Respiratory Rate 16 10/31/24 12:06 Blood Pressure 132/81 10/31/24 12:06 Pulse Oximetry 97 10/31/24 12:06 Oxygen Delivery Room Air 10/31/24 12:06 Temperature 99.2 F 10/31/24 12:06 Pulse Rate 96 10/31/24 12:06 Respiratory Rate 16 10/31/24 12:06 Blood Pressure 132/81 10/31/24 12:06 Pulse Oximetry 97 10/31/24 12:06 Oxygen Delivery Room Air 10/31/24 12:06 reviewed MDM - URI/Sore Throat MDM Narrative Medical decision making narrative: POS flu. Discussed physical exam findings. Advised supportive measures and signs/symptoms to go to the ER. Pt is appropriate for outpt treatment and f/u. Differential Diagnosis Differential diagnosis: Likely upper respiratory infection, sinusitis and viral infection Discharge Plan Discharge Clinical Impression: Influenza Patient Disposition: Home, Self-Care Condition: Stable Instructions: Influenza (ED) Additional Instructions: Influenza positive You should avoid crowds until you are fever free for 24 hours without the use of fever reducing medications, or the symptoms are improved Rest. Drink plenty of fluids. recommendations: Tylenol 1000mg every 8 hours as needed for pain/fever Flonase spray and Zyrtec (or Claritin/Blanca) for sinus pressure/congestion over the counter Cough syrup may cause drowsiness; avoid driving or take it at night time. Follow up with your primary care provider as needed Go to the ER for worsening symptoms or concerns Patient Language: Puerto Rican Prescriptions: No Action losartan 50 mg tablet 50 mg PO DAILY Qty: 90 1RF pantoprazole 40 mg tablet,delayed release (DR/EC) 40 mg PO DAILY Qty: 90 3RF Mounjaro 5 mg/0.5 mL pen injector 5 mg subcut WEEKLY multivitamin Tablet 1 tablet PO DAILY (DME) lancets [Accu-Chek Softclix Lancets] Misc See Rx Instructions .ROUTE .MEDSUPPLY Qty: 200 1RF Rx Instructions: Use to check BS 2 times daily (DME) Dexcom G7 Sensor Device See Rx Instructions .ROUTE .MEDSUPPLY Qty: 9 3RF Rx Instructions: Use to monitor glcuose (DME) Freestyle InsuLinx Test Strips Strip See Rx Instructions .Route Qty: 100 1RF Rx Instructions: Use to test BS BID (DME) FreeStyle Precision Azael Strips Strip See Rx Instructions .Route Qty: 200 0RF Rx Instructions: check BS BID Jardiance 25 mg tablet 25 mg PO DAILY Qty: 90 1RF pitavastatin calcium [Livalo] 4 mg tablet 4 mg PO QPM Qty: 90 1RF escitalopram oxalate [Lexapro] 10 mg tablet 10 mg PO DAILY Qty: 90 1RF dicyclomine 20 mg tablet 20 mg PO BID Qty: 60 2RF Follow-up/Referrals: Sun Cardenas APRN [Primary Care Provider] - Stand Alone Forms: Work/School Release IP Time of Disposition: 12:41
[2024-10-31 12:47] LABS: EDCOVIDSCREEN Negative (Negative); EDINFLUASCREEN Positive (Negative); EDINFLUBSCREEN Negative (Negative)
== END 2024-10-31 12:44 | disposition home or self-care (01) ==
PROVIDERS: Emergency Provider Nurse Practitioner Family; PCP Nurse Practitioner Family
DX: J10.1 Influenza due to other identified influenza virus with other respiratory manifestations (principal); Z20.822 Contact with and (suspected) exposure to COVID-19; E11.9 Type 2 diabetes mellitus without complications; Z79.84 Long term (current) use of oral hypoglycemic drugs; E78.00 Pure hypercholesterolemia, unspecified; K21.9 Gastro-esophageal reflux disease without esophagitis; F41.9 Anxiety disorder, unspecified; E66.9 Obesity, unspecified; Z68.32 Body mass index [BMI] 32.0-32.9, adult; Z86.718 Personal history of other venous thrombosis and embolism; Z96.651 Presence of right artificial knee joint
CPT/HCPCS: 87426; 87804; 99212; G0463

== ENCOUNTER 2025-01-22 02:13 | Emergency (ER) | payer OTHER, SELFPAY ==
--- NOTE | ~2025-01-22 | XR_ITS ---
EXAMINATION: XR chest 2V DATE: 01/22/2025 03:00 INDICATION: Chest pain TECHNIQUE: PA and lateral views of the chest were obtained. COMPARISON: Chest radiograph dated 12/24/2023 FINDINGS: The lungs are clear with no focal airspace opacities, pulmonary edema, pleural effusion or pneumothor ax. The cardiomediastinal silhouette is normal. Cholecystectomy clips in right upper quadrant. Suture anchors at the right humeral head consistent with prior rotator cuff repair. Mild thoracic and lumba r spondylosis. IMPRESSION: 1. No acute cardiopulmonary disease. Reviewed, dictated and finalized at location A.
--- NOTE | ~2025-01-22 | CT_ITS ---
EXAMINATION: CTA BRAIN/CAROTID DATE: 01/22/2025 10:25 INDICATION: Headache. Gait instability. TECHNIQUE: Computed tomographic angiography (CTA) of the head and neck was performed with 100 mL Omni paque-350 intravenous contrast. Multiplanar reconstructions and maximum intensity projection 3D-recon structions of the carotid arteries and of the intracranial arteries were created by the technologist on a separate workstation. Precontrast CT of the head was also obtained. Automated exposure control and iterative reconstruction technique were employed.The dose-length product was 1748.11 mGy-cm. COMPARISON: Brain MR dated 12/11/2012 FINDINGS: Carotid arteries: Mosaic attenuation in the visualized upper lungs likely related to atelectasis and partially expirato ry phase of imaging. Large region of consolidation in the superior segment of the right lower lobe an d in the adjacent posterior medial aspect of the right upper lobe consistent with pneumonia. Visualiz ed aortic arch is normal in caliber with no dissection. There is no atherosclerotic plaque with 0% st enosis of the right and left carotid bulbs relative to normal distal artery lumen diameter (NASCET cr iteria). Cervical soft tissues are unremarkable. Mild to moderate cervical spondylosis. Head: Small old lacunar infarcts in the white matter of the bilateral parietal lobes. There is additional m ild scattered nonspecific white matter hypoattenuation consistent with chronic small vessel ischemic disease. No acute intracranial hemorrhage, acute infarction or abnormal extra axial fluid collection. Ventricles are normal and symmetric. No mass/mass effect. No abnormally enhancing brain lesions on t he postcontrast imaging. The orbits and mastoid air cells are normal. Mild mucosal thickening the rig ht maxillary sinus. Intracranial arteries Vertebral arteries are codominant. There is no hemodynamically significant stenosis in the vertebral, basilar and internal carotid arteries. The right P1 and bilateral A1 segments are patent. The A1 seg ment is diminutive. The larger caliber right A1 segment supplies the larger caliber right anterior ce rebral artery which supplies portions of the left anterior cerebral artery vascular distribution. The left posterior cerebral artery supplied via a patent left posterior communicating artery. There are no aneurysms identified. Cerebral arterial arborization appears symmetric. IMPRESSION: 1. No evident atherosclerotic plaque with 0% stenosis of the right and left carotid bulbs relative to normal distal artery lumen diameter (NASCET criteria). 2. A couple small old lacunar infarcts in the left parietal lobe white matter. No acute intracranial process or abnormally enhancing brain lesions. 3. Normal variant cerebral arterial vascular anatomy with no hemodynamically since and stenosis, thro mbosis or aneurysm. 4. Pneumonia in the superior segment of the right lower lobe. Reviewed, dictated and finalized at location A. IMPRESSION: 1. No evident atherosclerotic plaque with 0% stenosis of the right and left car otid bulbs relative to normal distal artery lumen diameter (NASCET criteria). 2. A couple small old lacunar infarcts in the left parietal lobe white matter. No acute intracranial process or abnormally enhancing brain lesions. 3. Normal variant cerebral arterial vascular anatomy with no hemodynamically si nce and stenosis, thrombosis or aneurysm. 4. Pneumonia in the superior segment of the right lower lobe.
--- OUTSIDE RECORDS SUMMARY | 2025-01-22 02:15 | XMS_ITS | Clinical Summary ---
Author Organization [facility] Address [address] [place] [id number] Care Team Providers Care Systems Protection Technician Name Role Phone Kenyon Padilla MD Primary Care Provider [phone] Allergies Active Allergy Reactions Criticality Noted Date [...] Comments Blood Pressure 140/81 09/30/2018 8:02 AM SPLICER HELPER Pulse 86 09/30/2018 8:02 AM SPLICER HELPER Temperature 37.1 C (98.8 F) 09/30/2018 8:02 AM SPLICER HELPER Respiratory Rate 18 09/30/2018 8:02 AM SPLICER HELPER Oxygen Saturation 95% 09/30/2018 8:02 AM SPLICER HELPER Inhaled Oxygen Concentration - - Weight 88 kg (194 lb) 09/04/2018 2:46 PM SPLICER HELPER Height 162.6 cm (5' 4 ) 09/04/2018 2:46 PM SPLICER HELPER Body Mass Index 33.3 09/04/2018 2:46 PM SPLICER HELPER Plan of Treatment Health Maintenance Due Date [...] wi th HPV 1996 Mammogram Screening 2006 Pneumococcal Vaccine: 50+ Years (1 of 1 - PCV) 2016 Zoster Vaccines (1 of 2) 2016 COVID-19 Vaccine (3 - 2023-2 5 season) 2024 09/19/2020, 08/29/2020 Meningococcal B Vaccine Aged Out No l onger eligible based on patient's age to complete this topic Meningococcal Vaccine Aged Out No peyman neil eligible based on patient's age to complete this topic RSV Immunizations Under 20 Months Aged Out No longer eligible b ased on patient's age to complete this topic Medical Devices Implanted Type Area Treatment Counselor Device Identifier Shelf Expiration Date Model / Serial / Lot Cement Bone 20/10 Fast Set Depuy - [id number] Implanted:Qty: 1 on 09/29/2018 by Edwin Scott MD at [facility] Right: Knee [employer] 03/07/2021 [id number] / / [id number] Cement Bone 20/10 Fast Set Depuy - [id number] Implanted:Qty: 1 on 09/29/2018 by Edwin Scott MD at [facility] Right: Knee [employer] 02/05/2021 [id number] / / [id number] Persona The Personalized Knee System Femur Cemented Cruciate Retaining Cr Narrow Right Size 7 Implanted:Qty: 1 on 09/29/2018 by Edwin Scott MD at [facility] Right: Knee [employer] 08/07/2027 [id number] / / [id number] Persona The Personalized Knee System Natural Tibia Cemented 5 Degree Stemmed Right Size E Implanted:Qty: 1 on 09/29/2018 by Edwin Scott MD at [facility] Right: Knee [employer] 06/07/2028 [id number] / / [id number] Persona The Personalized Knee System Vivacit E Highly Crosslinked Polyethylene All Poly Patella Cemented 35 Mm Diameter 9.0 Mm Thickness Implanted:Qty: 1 on 09/29/2018 by Edwin Scott MD at [facility] Right: Knee [employer] 08/07/2023 [id number] / / [id number] Persona The Personlaized Knee System Vivacit E Highly Crosslinked Polyethylen Articular Surface Medial Congruent Nm Right 11 Mm Height Implanted:Qty: 1 on 09/29/2018 by Edwin Scott MD at [facility] Right: Knee [employer] 02/05/2023 [id number] / / [id number] Insurance [employer] OPEN ACCESS [facility] Advance Directives * Full Code (Latest Code Status on File) Date Activated Date Inactivated Comments 09/29/2018 1:03 PM 09/30/2018 12:23 PM Care Teams Systems Protection Technician Relationship Specialty Start Date End Date Kenyon Padilla MD [address] [place] [address] PCP - General INTERNAL MEDICINE 09/28/18
--- NOTE | 2025-01-22 02:16 | ECG_ITS ---
Test Date: 2025-01-22 02:20:51 Measurements Intervals [place] Rate: 93 P: 39 CO: 163 QRS: 1 QRSD: 87 T: 15 QT: 348 QTc: 433 Interpretive Statements SINUS RHYTHM LOW QRS VOLTAGE IN PRECORDIAL LEADS [QRS DEFLECTION < 1.0 mV IN CHEST LEADS] POSSIBLE ANTERIOR MYOCARDIAL INFARCTION , PROBABLY OLD [30 ms Q WAVE IN V3/V4, OR R < 0.2 mV IN V4] ABNORMAL ECG No previous ECG available for comparison Electronically Signed On 01-22-2025 08:10:06 CDT by Jameson Shipley M.D.
[2025-01-22 02:33] LABS: Basophils Absolute Auto 0.1 K/mm3 (0.0-0.1); Basophils Percent Auto 0.8 % (0.2-1.2); Eosinophils Percent Auto 0.1 % (0-4.4); Hematocrit 41.2 % (37.0-47.0); Hemoglobin 13.7 g/dL (12.0-15.0); Immature Granulocyte Absolute 0.07 K/mm3 (0.00-0.031); Immature Granulocyte Percent A 0.8 % (0-0.5); Lymphocytes Absolute Auto 1.24 K/mm3 (0.9-3.2); Lymphocytes Percent Auto 14.2 % (18.3-44.2); Mean Corpuscular HGB Conc 33.3 g/dl (32-36); Mean Corpuscular Hemoglobin 31.1 pg (26-34); Mean Corpuscular Volume 93.6 fl (80-100); Mean Platelet Volume 10.2 fl (7.4-10.4); Monocytes Absolute Auto 0.6 K/mm3 (0.1-0.6); Monocytes Percent Auto 6.7 % (2.6-8.5); Neutrophils Absolute Auto 6.7 K/mm3 (1.3-6.7); Neutrophils Percent Auto 77.4 % (45.5-73.1); Platelet Count Result 214 k/mm3 (150-375); Red Cell Distribution Width 11.9 % (11.5-14.5); White Blood Count 8.7 K/mm3 (4.5-10.0)
[2025-01-22 02:43] LABS: Alanine Aminotransferase 85 U/L (6-35); Albumin Level 3.9 g/dL (3.5-5.1); Alkaline Phosphatase 77 U/L (38-126); Anion Gap 9 mmol/L (4-12); Aspartate Amino Transferase 90 U/L (14-36); Bilirubin,Total 0.5 mg/dL (0.2-1.3); Blood Urea Nitrogen 14 mg/dL (7-17); Calcium 8.5 mg/dL (8.4-10.2); Carbon Dioxide 21 mmol/L (22-30); Chloride 102 mmol/L (98-107); Estimated CRCL calculation 75 ml/min; Estimated Glomerular Filt Rate > 60; Glucose 126 mg/dL (65-110); Lipase 117 U/L (23-300); Potassium 3.2 mmol/L (3.4-5.0); Sodium 132 mmol/L (137-145)
[2025-01-22 02:53] LABS: INR 1.1; Partial Thromboplastin Time 28.4 Seconds (22.3-36.8)
[2025-01-22 02:56] LABS: Troponin I < 0.012 ng/mL (0.000-0.034)
[2025-01-22 06:30] VITALS: BP 132/78; PULSE 88; TEMP 37.9; O2SAT 94
[2025-01-22 08:00] VITALS: BP 173/80; PULSE 94; RESP 19; TEMP 38.7; O2SAT 100
[2025-01-22] MEDS: ACETAMINOPHEN 500 MG TABLET 1000 MG PO (08:50)
[2025-01-22 09:35] VITALS: BP 141/75; PULSE 93; RESP 19; TEMP 38.8; O2SAT 100
--- OUTSIDE RECORDS SUMMARY | 2025-01-22 09:38 | XMS_ITS | Clinical Summary ---
Author Organization [facility] Address [address] [place] [id number] Care Team Providers Care Airplane Electrician Name Role Phone Kenyon Padilla MD Primary Care Provider Allergies Active Allergy Reactions Criticality Noted Date [...] Comments Blood Pressure 140/81 09/30/2018 8:02 AM INGOT HEADER Pulse 86 09/30/2018 8:02 AM INGOT HEADER Temperature 37.1 C (98.8 F) 09/30/2018 8:02 AM INGOT HEADER Respiratory Rate 18 09/30/2018 8:02 AM INGOT HEADER Oxygen Saturation 95% 09/30/2018 8:02 AM INGOT HEADER Inhaled Oxygen Concentration - - Weight 88 kg (194 lb) 09/04/2018 2:46 PM INGOT HEADER Height 162.6 cm (5' 4 ) 09/04/2018 2:46 PM INGOT HEADER Body Mass Index 33.3 09/04/2018 2:46 PM INGOT HEADER Plan of Treatment Health Maintenance Due Date [...] this topic Medical Devices Implanted Type Area Manager Studio Device Identifier Shelf Expiration Date Model / Serial / Lot Cement Bone 20/10 Fast Set Depuy - [id number] Implanted:Qty: 1 on 09/29/2018 by Edwin Scott MD at [facility] Right: Knee [employer] 03/07/2021 [id number] / / [id number] Cement Bone 20/10 Fast Set Depuy - [id number] Implanted:Qty: 1 on 09/29/2018 by Edwin Scott MD at [facility] Right: Knee [employer] 02/05/2021 [id number] / / [id number] Persona The Personalized Knee System Femur Cemented Cruciate Retaining Cr Narrow Right Size 7 Implanted:Qty: 1 on 09/29/2018 by Edwin Scott MD at [facility] Right: Knee [employer] 08/07/2027 [id number] / / [id number] Persona The Personalized Knee System Natural Tibia Cemented 5 Degree Stemmed Right Size E Implanted:Qty: 1 on 09/29/2018 by Edwin Scott MD at [facility] Right: Knee [employer] 06/07/2028 [id number] / / [id number] Persona The Personalized Knee System Vivacit E Highly Crosslinked Polyethylene All Poly Patella Cemented 35 Mm Diameter 9.0 Mm Thickness Implanted:Qty: 1 on 09/29/2018 by Edwin Scott MD at [facility] Right: Knee [employer] 08/07/2023 [id number] / / [id number] Persona The Personlaized Knee System Vivacit E Highly Crosslinked Polyethylen Articular Surface Medial Congruent Nm Right 11 Mm Height Implanted:Qty: 1 on 09/29/2018 by Ediwn Scott MD at [facility] Right: Knee [employer] 02/05/2023 [id number] / / [id number] Insurance [employer] OPEN ACCESS [facility] Advance Directives * Full Code (Latest Code Status on File) Date Activated Date Inactivated Comments 09/29/2018 1:03 PM 09/30/2018 12:23 PM Care Teams Airplane Electrician Relationship Specialty Start Date End Date Kenyon Padilla MD [address] [place] [address] PCP - General INTERNAL MEDICINE 09/28/18
--- NOTE | 2025-01-22 09:49 | ED_ITS ---
HPI - Headache General Chief Complaint: Headache Stated Complaint: chest pain Time Seen by Provider: 01/22/25 09:27 Source: patient and family Mode of arrival: ambulatory Limitations: no limitations History of Present Illness HPI Narrative: Patient presents with multiple complaints. She has had a headache but also chest pain and back pain. No photophobia or phonophobia, tinnitus, or ear pain. Headache is frontal, like a fice sensation. No syncope. No fever at home but chills. No lightheadedness or dizziness. + Dysequilibrium . No neck pain. Not on anticoagulation. SYmptoms were present yesterday then gone then recurred. Hx DVT in RLL considered provoked so anticoagulation discontinued 4 years ago. Feels like has brain fog but no altered mental status. Nauseated but no vomiting. Saw PCP Friday and diagnosed with stress induced vertigo. Using Advil/Tylenol. No trauma. Feels off balance. Meclizine prescribed not helping. No slurred speech. No cough, dysuria, hematuria. Related Data Home Medications Medication Instructions Recorded Confirmed Last Taken Type multivitamin 1 tablet PO DAILY 08/23/20 01/19/25 Unknown History hydroxychloroquine 200 mg tablet 200 mg PO BID 11/23/24 01/19/25 Unknown History (Plaquenil) Allergies Allergy/AdvReac Type Severity Reaction Status Date / Time Sulfa (Sulfonamide Allergy Intermediate sulfa eye Verified 01/19/25 12:59 Antibiotics) gtts [facility] Past Medical History Medical History Adhesive capsulitis of left shoulder Polycythemia Obesity (BMI 30.0-34.9) Cervical radiculopathy Partial tear of left rotator cuff GERD (gastroesophageal reflux disease) Anxiety Obesity (BMI 30-39.9) History of DVT in adulthood approx 2020, provoked ; anticoagulation discontinued Pure hypercholesterolemia Type 2 diabetes mellitus without complication Surgical History Surgical History History of shoulder surgery 12/07/21, left rotator cuff Previous section History of repair of left rotator cuff (~12/07/21) w/Subacromial Decompression History of repair of rotator cuff History of total right knee replacement (TKR) History of endometrial ablation History of cholecystectomy H/O right breast biopsy Family History Family History Father Hypertension Heart disease Acute myocardial infarction Mother Depression Hypertension Sibling Cancer Grandparent Cancer Other Afib Breast cancer Cataract and glaucoma syndrome Cerebrovascular accident Colon cancer Diabetes mellitus Family history of alcoholism Family history of mental disorder Hearing loss Heart failure Ovarian ca Social History Social History Social History: 10/01/24 patient declined SDOH Smoking status: Never smoker Second hand tobacco smoke exposure: No Alcohol intake: current Drinks per week: 5 Alcohol use details: socially Substance use: never Lack of Transportation: No Lack of Food: Never True Current Housing: I Have Housing Concerned About Future Housing: No Difficulty Paying Gas/Electric Bills: No Difficulty Paying for Meds: No Currently Unemployed: No Education: Associate Degree Difficulty w/ Childcare or Family Care: No Living arrangements: with family Spiritual care concerns: No Exam 2 Const: General: healthy appearing, no acute distress and alert; No diaphoretic or ill appearing Nutritional Appearance: well nourished O rientation/consciousness: patient oriented x3 Limitations: no limitations HENMT: Head: normal to inspection, no contusions, no hematomas and no lacerations Ears: external ears normal and TM's normal bilaterally F fabienne/Nose/Sinus: no epistaxis Eyes: Conjunctivae: conjunctivae normal EOM: EOMs intact bilaterally D irect Ophthalmoscopy: no photophobia Other: No nystagmus Neck: Neck: normal visual inspection and no meningeal signs Resp: Effort & Inspection: normal respiratory effort, not labored, no retractions, not tachypneic and no use of accessory muscles Cardio: Rhythm: regular rhythm GI: Inspection: non-distended GI Palp: Yes Soft to palpation Skin: General skin exam: normal color, no jaundice and no pallor Neuro: General: patient oriented x3, moves all extremities, no meningeal signs and no focal motor deficits Speech: normal speech Extrem: General: normal to inspection Psych: Mental Status: mental status grossly normal Affect: normal affect, No Sad affect present and No Anxious affect present Attitude: cooperative Course Vital Signs Vital signs: Vital Signs Temperature 100.3 F H 01/22/25 06:30 Pulse Rate 88 01/22/25 06:30 Blood Pressure 132/78 01/22/25 06:30 Pulse Oximetry 94 01/22/25 06:30 Temperature 101.8 F H 01/22/25 09:35 Pulse Rate 93 01/22/25 09:35 Respiratory Rate 19 01/22/25 09:35 Blood Pressure 141/75 H 01/22/25 09:35 Pulse Oximetry 100 01/22/25 09:35 MDM - Headache MDM Narrative Medical decision making narrative: Patient presents with a headache, chest/back pain, and dysequilibrium/feeling off balance and with brain fog. In the ED she is initially borderline febrile then febrile. Acetaminophen ordered. Mild hyponatremia and hypokalemia; will give potassium repletion. Elevated LFTs. History of cholecystectomy per review of EMR. Will order lipase although no complaint of abdominal pain particularly, just chest pain felt to be a gas bubble. Initial troponin normal. Headache and gait instability better (ambulated patient myself and she did so without having to grab onto anything) but did walk slowly and say that both were still present. Will trial Valium to target different receptors. Chest XRay initially read as normal but addendum suggests pneumonia (also on CT imaging) and this does help better explain the fever. 1st dose azithromycin ordered. HEART score = 3 points for age and >/=3 risk factors (low risk, 0.9-1.7% 30 day MACE). Repeat troponin normal. Patient ambulates w/o issues per RN. Urinalysis with some abnormalities but without obvious infection. Viral swab negative. Patient reassessed at 13:00 and feeling much better. Discussed the finding of pneumonia. Will give one time dose of steroid to reduce bounceback headache (though discussed her blood sugar may rise over the next 24-48 hours as a result but shared decision making of risks versus benefits). Prescribed antibiotic. Discharged in stable condition. Differential Diagnosis Differential diagnosis: Likely migraine, tension headache, subarachnoid hemorrhage, headache, meningitis and sinusitis Lab Data Attestation: I reviewed the patient's lab results. Lab results narrative: CBC generally unremarkable 01/22/25 02:26 01/22/25 02:26 Labs: Lab Results 01/22/25 01/22/25 Range/Units 02:26 12:13 WBC 8.7 (4.5-10.0) K/mm3 RBC 4.40 (4.2-5.4) M/mm3 Hgb 13.7 (12.0-15.0) g/dL Hct 41.2 (37.0-47.0) % MCV 93.6 (80-100) fl MCH 31.1 (26-34) pg MCHC 33.3 (32-36) g/dl RDW 11.9 (11.5-14.5) % Plt Count 214 (150-375) k/mm3 MPV 10.2 (7.4-10.4) fl Immature Gran % (Auto) 0.8 H (0-0.5) % Neut % (Auto) 77.4 H (45.5-73.1) % Lymph % (Auto) 14.2 L (18.3-44.2) % Travis % (Auto) 6.7 (2.6-8.5) % Eos % (Auto) 0.1 (0-4.4) % Baso % (Auto) 0.8 (0.2-1.2) % Lymph # (Auto) 1.24 (0.9-3.2) K/mm3 Travis # (Auto) 0.6 (0.1-0.6) K/mm3 Eos # (Auto) 0.0 (0-0.3) K/mm3 Baso # (Auto) 0.1 (0.0-0.1) K/mm3 Abs Immat Gran (auto) 0.07 H (0.00-0.031) K/mm3 Absolute Neuts (auto) 6.7 (1.3-6.7) K/mm3 Absolute Nucleated RBC 0.000 (0.0-0.012) K/mm3 Nucleated RBC % 0.0 (0.0-0.2) % PT 14.0 (11.1-14.7) Seconds INR 1.1 APTT 28.4 (22.3-36.8) Seconds Sodium 132 L (137-145) mmol/L Potassium 3.2 L (3.4-5.0) mmol/L Chloride 102 (98-107) mmol/L Carbon Dioxide 21 L (22-30) mmol/L Anion Gap 9 (4-12) mmol/L BUN 14 (7-17) mg/dL Creatinine 0.73 (0.7-1.0) mg/dL Estim Creat Clear Calc 75 ml/min Estimated GFR > 60 (59 - ) Glucose 126 H (65-110) mg/dL Calcium 8.5 (8.4-10.2) mg/dL Magnesium 2.1 (1.6-2.3) mg/dL Total Bilirubin 0.5 (0.2-1.3) mg/dL AST 90 H (14-36) U/L ALT 85 H (6-35) U/L Alkaline Phosphatase 77 (38-126) U/L Troponin I < 0.012 < 0.012 (0.000-0.034) ng/mL Total Protein 7.0 (6.3-8.2) g/dL Albumin 3.9 (3.5-5.1) g/dL Lipase 117 127 (23-300) U/L Urine Color Yellow (Yellow) Urine Appearance Clear (Clear) Urine pH 6.5 (5.0-9.0) Ur Specific [place] > 1.045 H (1.001-1.035) Urine Protein Trace (Negative) mg/dL Urine Glucose (UA) 3+ H (Negative) mg/dL Urine Ketones 1+ H (Negative) mg/dL Ur Blood (Man) Trace (Negative) Urine Nitrate Negative (Negative) Urine Bilirubin Negative (Negative) Urine Urobilinogen 0.2 (<2.0) mg/dL Add Ur Microanalysis Reviewed Leukocyte Esterase Rfl Negative (Negative) NICK/UL Urine RBC 3-5 H (0-2) /hpf Urine WBC 0-5 (0-3) /hpf Ur Squamous Epith Cells None seen (Few) /hpf Urine Bacteria None seen /hpf Urine Casts 0-2 Influenza A (RT-PCR) Negative (Negative) Influenza B (RT-PCR) Negative (Negative) RSV (RT-PCR) Negative (Negative) SARS-CoV-2 RNA (RT-PCR) Negative (Negative) Imaging Data Radiologist's impression: IMPRESSION: 1. No acute cardiopulmonary disease. Upon further review there is a right posterior perihilar region of consolidation projecting over the midthoracic spine on the lateral projection with appearance on prior CT angiogram consistent with pneumonia. IMPRESSION: 1. No evident atherosclerotic plaque with 0% stenosis of the right and left carotid bulbs relative to normal distal artery lumen diameter (NASCET criteria). 2. A couple small old lacunar infarcts in the left parietal lobe white matter. No acute intracranial process or abnormally enhancing brain lesions. 3. Normal variant cerebral arterial vascular anatomy with no hemodynamically since and stenosis, thrombosis or aneurysm. 4. Pneumonia in the superior segment of the right lower lobe. ECG Data EKG #1: Attestation: I personally reviewed and interpreted this ECG as follows: ECG completion date: 01/22/25 ECG completion time: 02:20 Interpretation: NSR at a rate of 93bpm. Good R wave progression across precordial leads. T wave inversion in III but flat in AVT and upright in II. No other T wave inversions. FL 163, QRS 87, QT/QTCD 348/398. Discharge Plan Discharge Clinical Impression: Elevated AST (SGOT), Elevated ALT measurement, Hypokalemia, Frontal headache, Pneumonia, Chest pain, Balance problem Patient Disposition: Home Condition: Stable Instructions: Antibiotic Form, Chest Pain (DC), Hypokalemia (ED), Community Acquired Pneumonia (DC), General Headache (ED), Transaminitis (ED) Additional Instructions: I am reassured that your headache and balance issues are improved. As we discussed, you have evidence of a pneumonia and received first dose of antibiotic in the ED with the rest of the course prescribed. Follow up with your primary care physician. Because you had chest pain but were otherwise low risk (but not NO risk), recommend following up either with a electronics assembler of your/your PCP's choosing or the name of one is listed below alternatively. Return to the ED with new/worsening symptoms. Acetaminophen (maximum 4000mg/day) is safe to take with NSAIDs. Patient Language: Italian Prescriptions: New azithromycin 250 mg tablet 250 mg PO DAILY 4 Days Qty: 4 0RF Rx Instructions: start on day 2 of therapy (01/23); received first dose in ED 01/22 No Action pantoprazole 40 mg tablet,delayed release (DR/EC) 40 mg PO DAILY Qty: 90 3RF meclizine 25 mg tablet 25 mg PO BID PRN (Reason: dizziness) Qty: 30 0RF multivitamin Tablet 1 tablet PO DAILY (DME) lancets [Accu-Chek Softclix Lancets] Misc See Rx Instructions .ROUTE .MEDSUPPLY Qty: 200 1RF Rx Instructions: Use to check BS 2 times daily hydroxychloroquine [Plaquenil] 200 mg tablet 200 mg PO BID Mounjaro 7.5 mg/0.5 mL pen injector 7.5 mg subcut WEEKLY Qty: 6 1RF (DME) Freestyle Insu[employer]x Test Strips Strip See Rx Instructions .Route Qty: 100 1RF Rx Instructions: Use to test BS BID (DME) FreeStyle Precision Azael Strips Strip See Rx Instructions .Route Qty: 200 0RF Rx Instructions: check BS BID Jardiance 25 mg tablet 25 mg PO DAILY Qty: 90 1RF escitalopram oxalate [Lexapro] 10 mg tablet 10 mg PO DAILY Qty: 90 1RF losartan 50 mg tablet 50 mg PO DAILY Qty: 90 1RF dicyclomine 20 mg tablet 20 mg PO BID Qty: 60 2RF rosuvastatin [Crestor] 10 mg tablet 10 mg PO DAILY Qty: 90 0RF Follow-up/Referrals: Sun Cardenas APRN [Primary Care Provider] - Jameson Shipley MD [Physician] - (cardiology) Stand Alone Forms: Work/School Release IP Time of Disposition: 13:08
[2025-01-22] MEDS: POTASSIUM BICARBONATE 25 MEQ TABEF PO (10:32)
[2025-01-22] MEDS: MECLIZINE HCL 25 MG TABLET PO (10:32)
[2025-01-22] MEDS: AZITHROMYCIN 250 MG TABLET 500 MG PO (11:08)
[2025-01-22] MEDS: diazePAM INJ (*CRX) 10 MG/2 ML SYRINGE 2.5 MG IV PUSH (11:09)
[2025-01-22 12:30] LABS: Add Urine Microscopic? YES; Appearance Urine Clear (Clear); Bacteria Urine None Seen /hpf; Bilirubin Urine Negative (Negative); Blood Urine Trace (Negative); Color Urine Yellow (Yellow); Glucose Urine UA 3+ mg/dL (Negative); Ketones Urine 1+ mg/dL (Negative); Leukocyte Esterase Ur Negative LEU/UL (Negative); Need Manual Microscopic Reviewed; Nitrate Urine Negative (Negative); Non Pathogenic Casts 0-2; Protein Urine Trace mg/dL (Negative); Specific Grav Ur > 1.045 (1.001-1.035); Squamous Epithelial Cell Urine None Seen /hpf (Few); Urobilinogen Urine 0.2 mg/dL (<2.0); WBC Urine 0-5 /hpf (0-3); pH Urine 6.5 (5.0-9.0)
[2025-01-22 12:34] LABS: Lipase 127 U/L (23-300); Magnesium 2.1 mg/dL (1.6-2.3)
[2025-01-22 12:40] LABS: Troponin I < 0.012 ng/mL (0.000-0.034)
[2025-01-22 12:55] LABS: Influenza A QL RT-PCR Negative (Negative); Influenza B QL RT-PCR Negative (Negative); RSV RNA, RT-PCR Negative (Negative); SARS-CoV-2 RNA PCR Negative (Negative)
[2025-01-22] MEDS: dexAMETHasone 2 MG TABLET 10 MG PO (13:23)
[2025-01-22] MEDS: KETOROLAC 15 MG/ML VIAL (*BKC) IV PUSH (13:23)
== END 2025-01-22 13:51 | disposition home or self-care (01) ==
PROVIDERS: Student in an Organized Health Care Education/Training Program; Emergency Provider Student in an Organized Health Care Education/Training Program; PCP Nurse Practitioner Family
DX: J18.9 Pneumonia, unspecified organism (principal); E87.6 Hypokalemia; R51.9 Headache, unspecified; R07.9 Chest pain, unspecified; R74.01 Elevation of levels of liver transaminase levels; R26.89 Other abnormalities of gait and mobility; Z20.822 Contact with and (suspected) exposure to COVID-19; E11.9 Type 2 diabetes mellitus without complications; E78.00 Pure hypercholesterolemia, unspecified; E66.9 Obesity, unspecified; K21.9 Gastro-esophageal reflux disease without esophagitis; Z86.718 Personal history of other venous thrombosis and embolism; Z96.651 Presence of right artificial knee joint; Z90.49 Acquired absence of other specified parts of digestive tract; R94.31 Abnormal electrocardiogram [ECG] [EKG]; Z68.30 Body mass index [BMI] 30.0-30.9, adult
CPT/HCPCS: 36415; 70496; 70498; 71046; 80053; 81001; 83690; 83735; 84484; 85025; 85610; 85730; 87637; 93005; 96374; 96375; 99284; A9270; J1885; J3360; J8540; Q9967

== ENCOUNTER 2025-04-05 07:05 | Outpatient (CLI) | payer OTHER, SELFPAY ==
--- NOTE | ~2025-04-05 | US_ITS ---
EXAMINATION: US aorta DATE: 04/05/2025 11:50 CDT INDICATION: Family history of abdominal aortic aneurysm TECHNIQUE: Grayscale, color Doppler, and pulsed Doppler images of the aorta and common iliac arteries were obtained. COMPARISON: None. FINDINGS: The proximal aorta measures 2.2 x 1.9 cm The mid aorta measures 1.6 x 1.9 cm The distal aorta measures 1.8 x 1.7 cm The right common internal iliac artery measures 1 x1.5 cm. The left common iliac artery measures 1 x 1.5 cm. IMPRESSION: No sonographic evidence of abdominal aortic aneurysm, as detailed above. Reviewed, dictated and finalized at location A.
== END 2025-04-05 07:06 | disposition home or self-care (01) ==
PROVIDERS: PCP Nurse Practitioner Family; Visit Provider Internal Medicine
DX: Z13.6 Encounter for screening for cardiovascular disorders (principal); Z82.49 Family history of ischemic heart disease and other diseases of the circulatory system
CPT/HCPCS: 76775